=== PATIENT | female | born 1970 | race Two or more races ===

== ENCOUNTER 2019-04-17 07:10 | Day surgery (SDC) | payer MEDICARE ==
[2019-04-16 14:14] LABS: HEMOGLOBIN 11.5 g/dL (12-16); MCH 27.6 pg (26.0-34.0); MCHC 31.9 g/dL (31.0-37.0); MCV 86.3 fL (80.0-100.0); MEAN PLATELET VOLUME 8.3 fL (7.4-10.4); RBC 4.17 10x6/uL (4.00-5.40); WBC 7.7 10x3/uL (4.8-10.8)
[~2019-04-17] VITALS: Ht 157.5 cm; Wt 86.2 kg
--- NOTE | ~2019-04-17 | OP ---
PATIENT NAME: EVELINE SMITH MEDICAL RECORD: [id number] :72 LOCATION:[facility] ADMISSION DATE: SURGEON: SHAMAR EMERY DPM DATE OF OPERATION: 04/17/2019 PREOPERATIVE DIAGNOSIS: Plantar fasciitis, left foot. POSTOPERATIVE DIAGNOSIS: Plantar fasciitis, left foot. PROCEDURE: Instep fasciotomy, left foot. ANESTHESIA: Local with IV sedation utilizing 19 cc of 1:1 mix of lidocaine and Marcaine plain on the plantar left foot. HEMOSTASIS: Left ankle tourniquet at 250 mmHg. PREOPERATIVE DETAILS: The patient was taken to the OR and placed on the operating table in supine position. This was followed by induction of general anesthesia and infiltration of local anesthetic. The left extremity was then prepped and draped in the usual aseptic technique followed by exsanguination and inflation of tourniquet. A 15 blade was used to create a 2 cm linear incision on the plantar aspect of the left foot in transverse fashion and just anterior to the weightbearing surface of the heel. The incision was deepened down through the subcutaneous tissue through the subcutaneous fat giving access to the plantar fascia. A 15-blade was used to incise the plantar fascia with the foot held in dorsiflexion. There was a significant reduction in the tension of the plantar fascia upon doing so. The wound was flushed. The deep tissue was reapproximated with 2-0 Vicryl, the subcutaneous tissue with 4-0 Rapide and the skin was closed with 4-0 nylon in a simple interrupted technique. Adaptic, 4 x 4 and Conform were used to dress the wound followed by Titi bandage. The tourniquet was deflated. POSTOPERATIVE DETAILS: The patient tolerated the procedure well and left the OR with vital signs stable and vascular status at preoperative levels. The patient was transported to recovery per anesthesia in stable condition. TRANSINT:[id number] Voice Confirmation ID: [id number] DOCUMENT ID: [id number] SHAMAR EMERY DPM CC: [id number] DICTATION DATE: 04/17/19 1038 SOFTWARE TEST SPECIALIST: 04/17/[address] [facility] [address] [place] [id number]
[~2019-04-17 07:10] MED LIST: GABAPENTIN300 MG PO
[2019-04-17 08:12] VITALS: BP 118/68; Ht 157.5 cm; Wt 86.2 kg
== END 2019-04-17 12:28 | disposition home or self-care (01) ==
LOC: D.OPS 07:10 → D.PAN 09:00 → D.OPS 10:00
PROVIDERS: Anesthesiology; ATTEND Podiatrist
DX: M72.2 Plantar fascial fibromatosis (principal)